=== PATIENT | female | born 1945 | race Caucasian/White ===

== ENCOUNTER 2017-06-01 15:31 | Observation (INO) | payer OTHER ==
[~2017-06-01] VITALS: Ht 162.6 cm; Wt 63.9 kg
[~2017-06-01 15:31] MED LIST: ADVAIR 250/501 DISK IH; AMITIZA8 MICROGRA PO; CARAFATE100 MG/ML PO; CHLORDIAZEPOXIDE5 MG PO; CIPROFLOXACIN500 M1 PO; COLACE100 MG PO; CYMBALTA20 MG PO; DAILY VITAMIN1 EAC8 PO; DAILY VITE1 EAC1 PO; DICYCLOMINE HCL20 MG PO; DIOVAN HCT 11 TABLET; DIOVAN HCT 1601 EACH PO; DIOVAN80 MG PO; EFFEXOR XR37.5 MG PO; FIORICET,ESG1 TABLET PO; FLEXERIL10 MG PO; HYDROCHLOROTHIA25 MG PO; LEVOTHYROX1 MCG/30 M PO; LEVOTHYROXINE137 MCG PO; LIBRAX, CLI1 CAPSULE PO; LOSARTAN POTASS50 MG PO; NAPROSYN500 MG PO; NEXIUM10 MG PO; NEXIUM40 MG PO; PHENAZOPYRIDIN200 MG PO; POLYETHYLENE GL17 GM PO; PREDNISONE5 MG PO; PROMETHAZINE HC25 M1 PO; TRICOR145 MG PO; ULTRAM50 MG PO; VENLAFAXINE HC150 M1 PO; VENTOLIN HFA18 GM PO; VITAMIN D2000 UNIT PO; XIFAXAN550 MG PO
[2017-06-01 16:26] LABS: HEMATOCRIT 39.8 % (36.0-46.0); HEMOGLOBIN 13.4 G/DL (11.9-15.5); MCH 30.3 PG (29.0-34.0); MCHC 33.7 G/DL (30.0-36.0); PLATELET COUNT 261 K/uL (156-360); RBC DIS.WIDTH-CV 13.9 % (11.8-14.6); RBC DIS.WIDTH-SD 45.7 % (39-53); RED BLOOD COUNT 4.42 M/uL (3.80-5.20); WHITE BLOOD COUNT 13.4 K/uL (4.1-10.2)
[2017-06-01 16:41] LABS: CHLORIDE 104 mEq/L (99-109); POTASSIUM 4.4 mEq/L (3.7-5.4); SODIUM 140 mEq/L (136-147)
[2017-06-01 16:42] LABS: GLUCOSE 150 mg/dL (70-99)
[2017-06-01 16:46] LABS: CREATININE 0.8 mg/dL (0.6-1.3); GFR ESTIMATE (CALCULATED) > 59 mL/min/; TROP-I INTERPRETATION NEGATIVE; TROPONIN-I < 0.01 ng/mL (0.0-0.30)
[2017-06-01 16:47] LABS: UREA NITROGEN (BUN) 8 mg/dL (9-23)
[2017-06-01] MEDS ORDERED: GABAPENTIN100 MG PO (20:11)
[2017-06-01] MEDS ORDERED: DEXILANT60 MG PO (20:11)
[2017-06-01] MEDS ORDERED: LEVOTHYROXINE125 MCG PO (20:12)
[2017-06-01] MEDS ORDERED: VALSARTAN80 MG PO (20:12)
[2017-06-01] MEDS ORDERED: VITAMIN B-6100 MG PO (20:15)
[2017-06-01] MEDS ORDERED: PROBIOTIC1 EAC7 PO (20:16)
[2017-06-01] MEDS ORDERED: ATARAX,VISTARIL25 MG PO (20:20)
[2017-06-01] MEDS ORDERED: MIRALAX255 GM PO (20:21)
[2017-06-01] MEDS ORDERED: FIBER GUMMIES1 EACH PO (20:22)
[2017-06-01 22:04] VITALS: BP 162/80
[2017-06-01 23:18] LABS: TROP-I INTERPRETATION NEGATIVE; TROPONIN-I < 0.01 ng/mL (0.0-0.30)
[2017-06-01 23:52] LABS: HDL CHOLESTEROL 39 MG/DL (Desirable>=50); LDL CHOLESTEROL 132 mg/dL (Desirable<100); NON-HDL CHOLESTEROL 148 mg/dL (Desirable<160); TOTAL CHOLESTEROL 187 mg/dL (Desirable<200); TRIGLYCERIDES 82 MG/DL (Normal: <150)
[2017-06-02 00:13] VITALS: BP 171/74
[2017-06-02 04:18] VITALS: BP 143/71
[2017-06-02 05:33] LABS: HEMATOCRIT 37.1 % (36.0-46.0); HEMOGLOBIN 12.2 G/DL (11.9-15.5); MCHC 32.9 G/DL (30.0-36.0); MCV 91.4 FL (83-99); PLATELET COUNT 249 K/uL (156-360); RBC DIS.WIDTH-CV 14.2 % (11.8-14.6); RBC DIS.WIDTH-SD 47.1 % (39-53); RED BLOOD COUNT 4.06 M/uL (3.80-5.20); WHITE BLOOD COUNT 17.2 K/uL (4.1-10.2)
[2017-06-02 05:57] LABS: ALBUMIN 4.1 G/DL (3.2-4.8); ALKALINE PHOSPHATASE 106 IU/L (3-129); ALT (GPT) 19 IU/L (3-49); AST (GOT) 26 IU/L (2-34); CHLORIDE 101 MEQ/L (99-109); CREATININE 0.7 MG/DL (0.6-1.3); GFR ESTIMATE (CALCULATED) > 59 mL/min/; GLUCOSE 114 mg/dL (70-99); POTASSIUM 3.9 MEQ/L (3.7-5.4); SODIUM 140 MEQ/L (136-147); TOTAL BILIRUBIN 0.6 MG/DL (0.0-1.0); TOTAL PROTEIN 6.4 G/DL (6.4-8.3); UREA NITROGEN (BUN) 10 mg/dL (9-23)
[2017-06-02 06:01] LABS: TROP-I INTERPRETATION NEGATIVE; TROPONIN-I 0.02 ng/mL (0.0-0.30)
[2017-06-02 08:43] LABS: APPEARANCE CLEAR ((CLEAR)); BILIRUBIN NEGATIVE; BLOOD NEGATIVE; COLOR YELLOW ((YELLOW)); GLUCOSE (STRIP) NEGATIVE; KETONES NEGATIVE; LEUKOCYTES NEGATIVE; NITRITE NEGATIVE; PROTEIN (STRIP) NEGATIVE; UROBILINOGEN 0.2 MG/DL (0.2-1.0)
[2017-06-02 10:38] LABS: HEMOGLOBIN A1c (GLYCOHEMOGLOB) 5.7 % (Below 5.7)
[2017-06-02 11:58] VITALS: BP 172/73
[2017-06-02] MEDS ORDERED: VALSARTAN160 MG PO (12:44)
== END 2017-06-02 13:44 | disposition home or self-care (01) ==
LOC: EME 15:31 → EDOF 20:40 → 5WEST 20:40 → EDOF 20:40 → ENRESERV 20:45 → 5WEST 21:36
PROVIDERS: Physician Assistant
DX: D72.829 Elevated white blood cell count, unspecified (principal); R07.9 Chest pain, unspecified; R20.2 Paresthesia of skin; T50.8X5A Adverse effect of diagnostic agents, initial encounter; R00.0 Tachycardia, unspecified; I10 Essential (primary) hypertension; I25.10 Atherosclerotic heart disease of native coronary artery without angina pectoris; I25.2 Old myocardial infarction; J44.9 Chronic obstructive pulmonary disease, unspecified; K21.9 Gastro-esophageal reflux disease without esophagitis; E89.0 Postprocedural hypothyroidism; E11.9 Type 2 diabetes mellitus without complications; G47.33 Obstructive sleep apnea (adult) (pediatric); Z91.19 Patient's noncompliance with other medical treatment and regimen; E78.5 Hyperlipidemia, unspecified; R31.9 Hematuria, unspecified; Z90.710 Acquired absence of both cervix and uterus; Z90.49 Acquired absence of other specified parts of digestive tract; Z88.0 Allergy status to penicillin; Z88.1 Allergy status to other antibiotic agents; Z88.2 Allergy status to sulfonamides; Z88.5 Allergy status to narcotic agent; Z88.6 Allergy status to analgesic agent
CPT/HCPCS: 71046; 80048; 80053; 80061; 81003; 83036; 84484; 85027; 85652; 93005; 94640; 99281; 99285; G0378; J1644; J7030; Q0177